=== PATIENT | female | born 1960 | race Caucasian/White ===

== ENCOUNTER 2018-08-02 11:02 | Day surgery (SDC) | payer OTHER ==
[2018-08-02] MEDS ORDERED: DIPRIVAN 200 MG/20 ML IV ONE (11:03)
[2018-08-02] MEDS ORDERED: Marcaine 0.5% SDV 10 ML IJ ONE (11:03)
[2018-08-02] MEDS ORDERED: Depo-Medrol 40 MG/ML IM ONE (11:03)
--- NOTE | 2018-08-02 12:47 | XRAY ---
Indication: Left knee injection. Intraoperative fluoroscopy was provided for 4 seconds. Single digital spot image submitted for interpretation demonstrates needle tip projecting over the left femur intercondylar notch. Small amount of contrast injected for needle tip placement. Correlate with intraoperative findings/report.
--- NOTE | 2018-08-02 12:51 | XRAY ---
3 seconds fluoroscopy time in surgery for right knee injection.
--- NOTE | 2018-08-02 12:52 | XRAY ---
4 seconds fluoroscopy time in surgery for left knee injection.
[2018-08-02] MEDS ORDERED: Lactated Ringers 1,000 ML IV ONE (13:06)
--- NOTE | 2018-08-02 13:07 | XRAY ---
Indication: Right knee injection. Intraoperative fluoroscopy was provided for 3 seconds. Single digital spot image submitted for interpretation demonstrates needle tip projecting over the right femur intercondylar notch. Small amount of contrast injected for needle tip placement. Correlate with intraoperative findings/report.
== END 2018-08-02 12:18 | disposition home or self-care (01) ==
LOC: SDC-PAIN 11:02
PROVIDERS: ATTEND Psychiatry & Neurology Pain Medicine
DX: M17.0 Bilateral primary osteoarthritis of knee (principal); I10 Essential (primary) hypertension; Z86.711 Personal history of pulmonary embolism; Z79.01 Long term (current) use of anticoagulants; I51.9 Heart disease, unspecified; E78.00 Pure hypercholesterolemia, unspecified; K21.9 Gastro-esophageal reflux disease without esophagitis; J44.9 Chronic obstructive pulmonary disease, unspecified; I48.91 Unspecified atrial fibrillation; Z79.899 Other long term (current) drug therapy
CPT/HCPCS: 20610; 73560; 77002; J1030; J2704; Q9966